=== PATIENT | male | born 1970 | race Caucasian/White ===

== ENCOUNTER 2016-07-06 11:17 | Outpatient (CLI) | payer BC ==
[~2016-07-06] VITALS: Ht 185.4 cm; Wt 145.5 kg
[2016-07-06] MEDS ORDERED: EFFEXOR75 MG PO (12:25)
[2016-07-06] MEDS ORDERED: PRILOSEC10 M1 PO (12:26)
[2016-07-06] MEDS ORDERED: TOPROL XL25 MG PO (12:26)
[2016-07-06 12:33] VITALS: BP 159/97; Ht 185.4 cm; Wt 145.5 kg
--- NOTE | 2016-07-06 16:20 | NUR ---
1605 1ST UNIT BLOOD HAS COMPLETED. TOLERATED WELL, ASSISSTED UP TO BR,VOIDS LG AMT. 1615 2ND UNI BLOD CHECKED AT BEDSIDE BY THIS NURSE AND DOTTIE ESCOBEDO RN, INITIATED AT 50/CC/HR BY ALARIS PUMP. AT BEDSIDE.
--- NOTE | 2016-07-06 17:31 | NUR ---
1715 ATE 100% REG SUPPER DIET. BLOOD INFUSING WELL, RATE HAS BEEN INCREASED IN INCREMENTS PT. TOLERATED, NOW AT 225/CC/HR. PT. DENIES PROBLEMS. CONTS. AT BEDSIDE. WE HAVE DISCUSSED DIETARY OPTIONS ON INCREASING BLOOD COUNTS. PT. IS TO FOLLOW UP WITH HIS PCP ON RECHECKING HIS LAB VALUES AND TO CHECK REASONS FOR HIS ANEMIA CAUSES.
--- NOTE | 2016-07-06 19:33 | NUR ---
190 NO PROBLEMS NOTED WITH BLOOD. PT. HAS VOIDED X3. PT. DENIED PROBLEMS. IV DC'D WITH CATH INTACT. PT. DECLINED OFFER OF WC. RELEASED AMB. WITH .
== END 2016-07-06 19:10 | disposition home or self-care (01) ==
LOC: D.OPS 11:17
DX: D64.9 Anemia, unspecified (principal)

== ENCOUNTER 2016-07-17 09:42 | Outpatient (CLI) | payer BC ==
[~2016-07-17] VITALS: Ht 185.4 cm; Wt 145.5 kg
[~2016-07-17 09:42] MED LIST: EFFEXOR75 MG PO; PRILOSEC10 M1 PO; TOPROL XL25 MG PO
[2016-07-17 11:15] VITALS: BP 150/88; Ht 185.4 cm; Wt 145.5 kg
--- NOTE | 2016-07-17 12:30 | NUR ---
#20 GUAGE IV STARTED IN RIGHT WRIST X 1 STICK. NS INFUSING AT KVO FOR PRBC'S. REGULAR DIET GIVEN. LOW GRADE FEVER NOTED. STATES HAS NOT FELT SICK.
--- NOTE | 2016-07-17 12:40 | NUR ---
#20 GUAGE IV STARTED IN RIGHT WRIST. 1 UNIT OF PRBC'S UP WITH NS AND BLOOD TUBING. HAS EATEN LUNCH. DENIES NEEDS. PREMEDICATED WITH BENADRYL 12.5MG IV AND TYLENOL 650MG PO GIVEN.
--- NOTE | 2016-07-17 12:40 | NUR ---
1 UNIT OF PRBC'S UP WITH NS AND BLOOD TUBING AT 125ML/HR VIA PUMP.
--- NOTE | 2016-07-17 13:10 | NUR ---
FIRST 50ML OF BLOOD HAS INFUSED WITHOUT SIGNS OF REACTION. NO RASH OR FEVER NOTED. INFUSION INCREASED TO 150ML/HR VIA PUMP.
--- NOTE | 2016-07-17 14:40 | NUR ---
UP TO BATHROOM, GAIT STEADY. STATES BECAME COLD WHILE UP IN CHAIR AND FELT SHORT OF BREATH WHILE GOING TO THE BATHROOM. STATES IS NOW FINE ONCE HE WARMED UP. TEMP IS 98.5 AT THIS TIME. VITAL SIGNS STABLE. NO RASH NOTED. OXYGEN SATURATION IS 99%. LUNG SOUNDS CLEAR TO AUSCULTATION.
--- NOTE | 2016-07-17 15:25 | NUR ---
PRBC'S COMPLETED. IV CONVERTED TO SALINE LOCK. STATES FEELS FINE NOW. NO SIGN OF TRANSFUSION REACTION. STATES FEELS A LITTLE WEAK.
--- NOTE | 2016-07-17 16:25 | NUR ---
IV REMOVED INTACT. VITAL SIGNS STABLE. INSTRUCTED ON BLOOD TRANSFUSION REACTIONS AND IF ANY OCCUR TO SEEK MEDICAL CARE. DISCHARGED HOME VIA WC.
== END 2016-07-17 16:25 | disposition home or self-care (01) ==
LOC: D.OPS 09:42
DX: D64.9 Anemia, unspecified (principal)

== ENCOUNTER → 2016-07-27 10:45 | Outpatient (CLI) | payer BC ==
[2016-07-17 11:15] VITALS: BMI 42.3
== END | disposition home or self-care (01) ==
LOC: D.NM 10:45
DX: D50.9 Iron deficiency anemia, unspecified (principal)

== ENCOUNTER → 2016-08-03 09:53 | Outpatient (CLI) | payer BC ==
[2016-07-17 11:15] VITALS: BMI 42.3
== END | disposition home or self-care (01) ==
LOC: D.NM 09:53
DX: D50.9 Iron deficiency anemia, unspecified (principal)